=== PATIENT | female | born 1990 | race Two or more races ===

== ENCOUNTER 2023-12-29 17:36 | Emergency (ER) | payer OTHER ==
[~2023-12-29] VITALS: Ht 162.6 cm; Wt 68.0 kg
[2023-12-29] MEDS ORDERED: PRENATAL + DHA1 EAC1 PO (17:56)
[2023-12-29 19:03] LABS: HEMATOCRIT 37.7 % (36.0-45.00); HEMOGLOBIN 12.7 g/dL (12.0-15.00); MEAN CELL VOLUME 89.2 fL (80.00-100.00); MEAN CORPUSCULAR HGB CONC 33.7 g/dl (32.0-36.0); PLATELET COUNT 214 K/uL (150-450); RED BLOOD COUNT 4.23 M/uL (4.00-6.00); RED CELL DISTRIBUTION WIDTH 13.4 % (11.5-14.5)
[2023-12-29 19:10] LABS: URINE APPEARANCE Clear; URINE BILIRRUBIN Negative (NEGATIVE); URINE BLOOD Small; URINE COLOR Yellow; URINE GLUCOSE Negative (NEGATIVE); URINE LEUKOCYTE Negative; URINE NITRATE Negative; URINE PROTEIN Negative (NEGATIVE); URINE UROBILINOGEN 0.2 E.U./dl
[2023-12-29 19:13] LABS: URINE BACTERIA 31.4 uL (0.0-1933); URINE EPITHELIAL CELLS 4.7 uL (0.0-38.8); URINE RBC 8.4 uL (0.0-20.8)
[2023-12-29 19:22] LABS: URINE WBC 1.6 uL (0.0-23.2)
[2023-12-29 19:39] LABS: CREATININE SERUM 0.76 mg/dL (0.55-1.02); GFR 88.76; POTASSIUM 4.07 mEq/L (3.5-5.1)
[2023-12-29 19:41] LABS: INR 1.01; PROTHROMBIN TIME 10.6 SECONDS (9.0-11.5)
== END 2023-12-29 21:17 | disposition home or self-care (01) ==
LOC: ER 17:36
PROVIDERS: General Practice
DX: O20.8 Other hemorrhage in early pregnancy (principal); Z3A.01 Less than 8 weeks gestation of pregnancy

== ENCOUNTER 2023-12-30 11:17 | Emergency (ER) | payer OTHER ==
[~2023-12-30] VITALS: Ht 160 cm; Wt 61.2 kg
[~2023-12-30 11:17] MED LIST: PRENATAL + DHA1 EAC1 PO
[2023-12-30 12:45] LABS: HEMATOCRIT 37.1 % (36.0-45.00); HEMOGLOBIN 12.6 g/dL (12.0-15.00); MEAN CELL VOLUME 90.3 fL (80.00-100.00); MEAN CORPUSCULAR HEMOGLOBIN 30.7 pg (27.00-32.0); PLATELET COUNT 227 K/uL (150-450); RED BLOOD COUNT 4.11 M/uL (4.00-6.00); RED CELL DISTRIBUTION WIDTH 13.1 % (11.5-14.5)
== END 2023-12-30 14:01 | disposition home or self-care (01) ==
LOC: ER 11:17
PROVIDERS: Emergency Medicine
DX: O20.9 Hemorrhage in early pregnancy, unspecified (principal); O34.10 Maternal care for benign tumor of corpus uteri, unspecified trimester; Z3A.00 Weeks of gestation of pregnancy not specified

== ENCOUNTER 2024-04-13 14:55 | Outpatient (CLI) | payer OTHER | END 2024-04-13 14:57 | disposition home or self-care (01) | LOC: PRENATAL 14:55 | PROVIDERS: ATTEND Obstetrics & Gynecology Maternal & Fetal Medicine | DX: O36.80X0 Pregnancy with inconclusive fetal viability, not applicable or unspecified (principal); Z36.82 Encounter for antenatal screening for nuchal translucency; Z14.8 Genetic carrier of other disease; O09.91 Supervision of high risk pregnancy, unspecified, first trimester; O14.92 Unspecified pre-eclampsia, second trimester; Z3A.13 13 weeks gestation of pregnancy ==

== ENCOUNTER 2024-06-03 08:29 | Outpatient (CLI) | payer OTHER | END 2024-06-03 08:30 | disposition home or self-care (01) | LOC: PRENATAL 08:29 | PROVIDERS: ATTEND Obstetrics & Gynecology Maternal & Fetal Medicine | DX: O35.3XX0 Maternal care for (suspected) damage to fetus from viral disease in mother, not applicable or unspecified (principal); O44.00 Complete placenta previa NOS or without hemorrhage, unspecified trimester; O14.90 Unspecified pre-eclampsia, unspecified trimester; Z3A.20 20 weeks gestation of pregnancy ==

== ENCOUNTER → 2024-07-26 09:11 | Outpatient (CLI) | payer OTHER | END | disposition home or self-care (01) | LOC: PRENATAL 09:11 | PROVIDERS: ATTEND Obstetrics & Gynecology Maternal & Fetal Medicine | DX: O26.849 Uterine size-date discrepancy, unspecified trimester (principal); O36.8199 Decreased fetal movements, unspecified trimester, other fetus; O14.90 Unspecified pre-eclampsia, unspecified trimester; O34.219 Maternal care for unspecified type scar from previous cesarean delivery; Z3A.28 28 weeks gestation of pregnancy ==

== ENCOUNTER → 2024-09-06 08:53 | Outpatient (CLI) | payer OTHER | END | disposition home or self-care (01) | LOC: PRENATAL 08:53 | PROVIDERS: ATTEND Obstetrics & Gynecology Maternal & Fetal Medicine | DX: O26.849 Uterine size-date discrepancy, unspecified trimester (principal); O36.8199 Decreased fetal movements, unspecified trimester, other fetus; O14.90 Unspecified pre-eclampsia, unspecified trimester; O34.219 Maternal care for unspecified type scar from previous cesarean delivery; Z3A.34 34 weeks gestation of pregnancy ==

== ENCOUNTER 2024-09-30 09:06 | Inpatient (IN) | payer OTHER ==
[~2024-09-30] VITALS: Ht 160 cm; Wt 2.7 kg
[2024-09-30 08:21] VITALS: BP 109/72
[2024-09-30] MEDS ORDERED: RINGERS SOLUTION,LACTATED 1,000 ML IV SCH (09:30)
[2024-09-30] MEDS ORDERED: MORPHINE SULFATE 4 MG/ML CARTRIDGE IV ONE (09:30)
[2024-09-30] MEDS ORDERED: CEFAZOLIN SODIUM 1,000 MG VIAL IV NR (10:15)
[2024-09-30 10:17] LABS: PH,URINE 6.5 (5.0-8.0); URINE APPEARANCE Cloudy; URINE BILIRRUBIN Negative (NEGATIVE); URINE BLOOD Negative; URINE COLOR Yellow; URINE GLUCOSE Negative (NEGATIVE); URINE KETONE Negative (NEGATIVE); URINE LEUKOCYTE Trace; URINE NITRATE Negative; URINE PROTEIN Trace (NEGATIVE)
[2024-09-30 10:18] LABS: URINE CAST 1.61 uL (0.0-1.40); URINE EPITHELIAL CELLS 32.4 uL (0.0-38.8); URINE RBC 3.8 uL (0.0-20.8); URINE WBC 116.5 uL (0.0-23.2)
[2024-09-30 10:21] LABS: HEMATOCRIT 36.3 % (36.0-45.00); HEMOGLOBIN 12.1 g/dL (12.0-15.00); MEAN CELL VOLUME 90.4 fL (80.00-100.00); MEAN CORPUSCULAR HEMOGLOBIN 30.1 pg (27.00-32.0); MEAN CORPUSCULAR HGB CONC 33.3 g/dl (32.0-36.0); PLATELET COUNT 195 K/uL (150-450); RED BLOOD COUNT 4.02 M/uL (4.00-6.00); RED CELL DISTRIBUTION WIDTH 13.2 % (11.5-14.5)
[2024-09-30 10:29] LABS: INR < 0.93; PARTIAL THROMBOPLASTIN TIME 24.9 SECONDS (22.0-34.0); PROTHROMBIN TIME 9.8 SECONDS (9.0-11.5)
[2024-09-30] MEDS ORDERED: OXYTOCIN 10 UNITS/ML VIAL ONE (10:34)
[2024-09-30] MEDS ORDERED: ERYTHROMYCIN BASE OPHT 1GM EACH TUBE OP ONE (10:35)
[2024-09-30 11:40] LABS: URINE BACTERIA > 9821.5 uL (0.0-1933)
[2024-09-30] MEDS ORDERED: PROMETHAZINE HCL 50 MG/ML AMPUL IM PRN ×2 (12:00→17:00)
[2024-09-30] MEDS ORDERED: MEPERIDINE HCL/PF 50 MG/ML VIAL IM PRN (12:00)
[2024-09-30] MEDS ORDERED: MORPHINE SULFATE 4 MG/ML VIAL IV ONE ×2 (13:25→13:55)
[2024-09-30 14:37] VITALS: BP 123/80
[2024-09-30 16:20] VITALS: BP 96/63
[2024-09-30] MEDS ORDERED: MEPERIDINE HCL/PF 50 MG/ML VIAL IV PRN ×2 (17:00→17:15)
[2024-09-30 17:13] LABS: HEMATOCRIT 34.8 % (36.0-45.00); HEMOGLOBIN 11.9 g/dL (12.0-15.00); MEAN CELL VOLUME 89.7 fL (80.00-100.00); MEAN CORPUSCULAR HEMOGLOBIN 30.6 pg (27.00-32.0); MEAN CORPUSCULAR HGB CONC 34.1 g/dl (32.0-36.0); PLATELET COUNT 184 K/uL (150-450); RED BLOOD COUNT 3.88 M/uL (4.00-6.00); RED CELL DISTRIBUTION WIDTH 13.2 % (11.5-14.5)
[2024-09-30] MEDS ORDERED: PROMETHAZINE HCL 25 MG/ML AMPUL IV PRN (17:15)
[2024-10-01 00:33] VITALS: BP 118/79
[2024-10-01] MEDS ORDERED: OxyCODONE HCL/APAP UD (PERCOCET) PO PRN (08:00)
[2024-10-01 08:36] VITALS: BP 112/77
[2024-10-01] MEDS ORDERED: DOCUSATE SODIUM 100MG CAP PO SCH (09:00)
[2024-10-01] MEDS ORDERED: PNV,CALCIUM 72/IRON/FOLIC ACID 1 TAB TABLET PO SCH (09:00)
[2024-10-01] MEDS ORDERED: SIMETHICONE 125 MG CAPSULE PO SCH (09:00)
[2024-10-01 16:00] VITALS: BP 115/74
[2024-10-01] MEDS ORDERED: HYDROCORTISONE 2.5% 30 GM TUBE RECTAL SCH (17:35)
[2024-10-02 01:50] VITALS: BP 118/72; O2SAT 100
[2024-10-02 08:25] VITALS: BP 96/60
[2024-10-02] MEDS ORDERED: IBUPROFEN800 MG PO (09:47)
== END 2024-10-02 13:48 | disposition home or self-care (01) | DRG 788 ==
LOC: LDR 09:06 → O/R 13:05 → OB/GYN 13:28
PROVIDERS: ADMIT Obstetrics & Gynecology; ATTEND Obstetrics & Gynecology
PROC: 4A1HXCZ Monitoring of Products of Conception, Cardiac Rate, External Approach (ICD-10-PCS; 2024-09-30)
PROC: 10D00Z1 Extraction of Products of Conception, Low, Open Approach (ICD-10-PCS; principal; 2024-09-30 11:15)
DX: O82 Encounter for cesarean delivery without indication (principal); Z3A.37 37 weeks gestation of pregnancy; Z37.0 Single live birth; Z20.822 Contact with and (suspected) exposure to COVID-19